=== PATIENT | female | born 1960 | race Caucasian/White ===

== ENCOUNTER 2019-02-14 10:49 | Emergency (ER) | payer OTHER ==
[~2019-02-14] VITALS: Ht 162.6 cm; Wt 90.4 kg
--- NOTE | 2019-02-14 10:53 | NUR ---
Patient ambulated to bed 7. RN evaluating patient at bedside.
[2019-02-14 10:55] VITALS: BP 130/96
--- NOTE | 2019-02-14 10:55 | NUR ---
BIB SELF WITH C/O RT EYE PAIN 5/10 WITH SWELLING X 3 DAYS. DENIES INJURY VISION RT EYE 20/70 LT/BL EYE 20/30 . DENIES N/V/D; SKIN IS PINK/WARM/DRY; AAOX4 WITH EVEN AND STEADY GAIT; LUNGS CLEAR BL; HR EVEN AND REGULAR; PT DENIES ANY FEVER, CP, SOB, OR COUGH AT THIS TIME; PATIENT STATES PAIN OF 5/10 AT THIS TIME; VSS; PATIENT POSITIONED FOR COMFORT; HOB ELEVATED; BEDRAILS UP X2; BED DOWN. ER MD MADE AWARE OF PT STATUS.
--- NOTE | 2019-02-14 11:47 | NUR ---
DR. GIBBS AT BEDSIDE
[2019-02-14 12:02] LABS: BASOPHILS # (AUTO) 0.1 K/uL (0.00-0.22); BASOPHILS % (AUTO) 1.1 % (0.0-2.0); EOSINOPHILS # (AUTO) 0.1 K/uL (0-0.4); EOSINOPHILS % (AUTO) 1.8 % (0.0-4.0); HEMATOCRIT 43.3 % (36-48); HEMOGLOBIN 14.5 g/dL (12.0-16.0); LYMPHOCYTES # (AUTO) 1.8 K/uL (2.5-16.5); LYMPHOCYTES % (AUTO) 28.9 % (20.5-51.1); MEAN CORPUSCULAR HEMOGLOBIN 31 pg (27-31); MEAN CORPUSCULAR HGB CONC 34 g/dL (33-37); MONOCYTES # (AUTO) 0.5 K/uL (0.8-1.0); MONOCYTES % (AUTO) 8.2 % (1.7-9.3); NEUTROPHILS # (AUTO) 3.7 K/uL (1.8-7.7); PLATELET COUNT (AUTO) 240 K/uL (140-450); RED BLOOD CELL COUNT(AUTO) 4.66 MIL/uL (4.20-5.40); RED CELL DISTRIBUTION WIDTH 12.6 % (11.6-13.7); WHITE BLOOD COUNT (AUTO) 6.1 K/uL (4.8-10.8)
[2019-02-14 12:14] LABS: ANION GAP 12.5 (8-16); CARBON DIOXIDE 27.9 mmol/L (21-32); CREATININE 0.8 mg/dL (0.6-1.3); POTASSIUM 3.4 mmol/L (3.5-5.1)
--- NOTE | 2019-02-14 12:52 | NUR ---
PT RETURNED FROM CT AT THIS TIME VIA WHEELCHAIR
--- NOTE | 2019-02-14 14:02 | NUR ---
Patient discharged with v/s stable. Written and verbal after care instructions given and explained. Patient alert, oriented and verbalized understanding of instructions. Ambulatory with steady gait. All questions addressed prior to discharge. ID band removed. Patient advised to follow up with PMD. Rx of AMOXICILLIN AND CLINDAMYCIN given. Patient educated on indication of medication including possible reaction and side effects. Opportunity to ask questions provided and answered.
[2019-02-14 14:03] VITALS: BP 121/68
== END 2019-02-14 14:02 | disposition home or self-care (01) ==
LOC: MED 10:49
DX: L03.213 Periorbital cellulitis (principal); M79.7 Fibromyalgia; M81.0 Age-related osteoporosis without current pathological fracture; E03.9 Hypothyroidism, unspecified; Z98.890 Other specified postprocedural states
CPT/HCPCS: 36415; 70481; 80048; 83605; 85025; 87040; 99284; Q9967

== ENCOUNTER 2019-09-22 08:41 | Emergency (ER) | payer OTHER ==
[~2019-09-22] VITALS: Ht 162.6 cm; Wt 88.5 kg
[2019-09-22 08:55] VITALS: BP 131/78
--- NOTE | 2019-09-22 08:59 | NUR ---
PT TAKEN TO BED 9.
--- NOTE | 2019-09-22 09:00 | NUR ---
DR STEELE AT BEDSIDE
--- NOTE | 2019-09-22 09:16 | NUR ---
EKG BEING PERFORMED AT BEDSIDE
--- NOTE | 2019-09-22 09:16 | NUR ---
C/O R SIDED CHEST PAIN, RADIATING TO UPPER BACK, 08/21 X1 DAY. PT STATES HER SON GAVE HER A HUG YESTERDAY AND THINKS HE SQUEEZZED HER TOO HARD DUE TO HER OSTEOPOROSIS. DENIES N/V. PT NON-DIAPHORETIC. PT ALERT AND AWAKE. VS STABLE. AMBULATES WITH STEADY GAIT. BED IS DOWN, LOCKED, BED RAIL X 1, ERMD TO SEE PT. HX: FIBROMYALGIA, HYPOTHYROID, OSTEOPOROSIS
--- NOTE | 2019-09-22 09:16 | NUR ---
LAB AT BEDSIDE
--- NOTE | 2019-09-22 09:31 | NUR ---
PT BEING TAKEN TO XRAY VIA WHEELCHAIR
[2019-09-22 09:38] LABS: BASOPHILS # (AUTO) 0.1 K/uL (0.00-0.22); BASOPHILS % (AUTO) 1.3 % (0.0-2.0); EOSINOPHILS # (AUTO) 0.1 K/uL (0-0.4); EOSINOPHILS % (AUTO) 2.4 % (0.0-4.0); HEMATOCRIT 42.2 % (36-48); LYMPHOCYTES # (AUTO) 1.8 K/uL (2.5-16.5); LYMPHOCYTES % (AUTO) 33.7 % (20.5-51.1); MEAN CORPUSCULAR HEMOGLOBIN 32 pg (27-31); MEAN CORPUSCULAR HGB CONC 33 g/dL (33-37); MEAN CORPUSCULAR VOLUME 96.8 fL (80-94); MONOCYTES # (AUTO) 0.5 K/uL (0.8-1.0); MONOCYTES % (AUTO) 9.9 % (1.7-9.3); NEUTROPHILS # (AUTO) 2.8 K/uL (1.8-7.7); NEUTROPHILS % (AUTO) 52.7 % (42.2-75.2); PLATELET COUNT (AUTO) 238 K/uL (140-450); RED BLOOD CELL COUNT(AUTO) 4.36 MIL/uL (4.20-5.40); RED CELL DISTRIBUTION WIDTH 13.8 % (11.6-13.7); WHITE BLOOD COUNT (AUTO) 5.3 K/uL (4.8-10.8)
--- NOTE | 2019-09-22 09:42 | NUR ---
Patient returned from XRAY. RN re-evaluating patient at bedside.
[2019-09-22 09:48] LABS: ANION GAP 11.9 (8-16); CARBON DIOXIDE 28.4 mmol/L (21-32); CREATININE 0.8 mg/dL (0.6-1.3); POTASSIUM 5.3 mmol/L (3.5-5.1)
[2019-09-22 09:54] LABS: ALBUMIN 3.7 g/dL (3.4-5.0); TOTAL BILIRUBIN 0.5 mg/dL (0.0-1.0)
--- NOTE | 2019-09-22 10:00 | NUR ---
Marielle palmer in [facility] - 09/22/19 at [email or web address] STEELE AT BEDSIDE
--- NOTE | 2019-09-22 10:27 | NUR ---
vs stable at this time. chest pain 08/21, dr cooper aware. pt alert and awake. daughter bedside
[2019-09-22 10:42] VITALS: BP 133/85
--- NOTE | 2019-09-22 10:42 | NUR ---
Patient discharged with v/s stable. Written and verbal after care instructions given and explained REGARDING CHEST WALL PAIN. Patient alert, oriented and verbalized understanding of instructions. Ambulatory with steady gait. All questions addressed prior to discharge. ID band removed. Patient advised to follow up with PMD. Rx of NORCO AND ZOFRAN given. Patient educated on indication of medication including possible reaction and side effects. Opportunity to ask questions provided and answered. INSTRUCTED TO NOT DRIVE AFTER TAKING NORCO PAPERWORK GIVEN IN [place], DISCHARGE INSTRUCTIONS GIVEN IN [place], DAUGHTER TRANSLATED
== END 2019-09-22 10:42 | disposition home or self-care (01) ==
LOC: MED 08:41
DX: R07.89 Other chest pain (principal); E03.9 Hypothyroidism, unspecified
CPT/HCPCS: 36415; 71101; 80053; 84484; 85025; 93005; 99284

== ENCOUNTER 2019-09-30 13:10 | Emergency (ER) | payer OTHER ==
[~2019-09-30] VITALS: Ht 162.6 cm; Wt 88.0 kg
[2019-09-30 13:13] VITALS: BP 136/82
--- NOTE | 2019-09-30 13:44 | NUR ---
PT AMBULATED TO BED 11
--- NOTE | 2019-09-30 14:17 | NUR ---
59 y/o f with complaints of right sided rib pain that started 1 1/2 weeks ago after getting "a huge hug" from her son. Patient stated she did get an x-ray a week ago that was negative. However, patient still has pain with movement, lifting and ADL's when using her right arm. She has taken Tylenol for pain that has not helped with the pain.
[2019-09-30] MEDS: IBUPROFEN 400 MG TAB PO ONE (15:02)
[2019-09-30 15:26] VITALS: BP 142/92
== END 2019-09-30 15:27 | disposition home or self-care (01) ==
LOC: MED 13:10
DX: S20.20XA Contusion of thorax, unspecified, initial encounter (principal); M54.9 Dorsalgia, unspecified; E07.9 Disorder of thyroid, unspecified; Z90.49 Acquired absence of other specified parts of digestive tract; Z90.710 Acquired absence of both cervix and uterus; X58.XXXA Exposure to other specified factors, initial encounter; Y93.89 Activity, other specified; Y92.89 Other specified places as the place of occurrence of the external cause; Y99.8 Other external cause status
CPT/HCPCS: 99282

== ENCOUNTER 2020-09-19 13:46 | Emergency (ER) | payer OTHER ==
[~2020-09-19] VITALS: Ht 162.6 cm; Wt 83.9 kg
[2020-09-19 13:51] VITALS: BP 131/86
--- NOTE | 2020-09-19 14:00 | NUR ---
PATIENT PRESENTS TO ED WITH LLB PAIN X 4 DAYS . PT STATES SHE HAS BEEN ABLE TO HOLD HER BLADDER AND HAS URGENCY . DENIES N/V/D; SKIN IS PINK/WARM/DRY; AAOX4 WITH EVEN AND STEADY GAIT; LUNGS CLEAR BL; HR EVEN AND REGULAR; PT DENIES ANY FEVER, CP, SOB, OR COUGH AT THIS TIME; PATIENT STATES PAIN OF 0/10 AT THIS TIME; VSS; PATIENT POSITIONED FOR COMFORT; HOB ELEVATED; BEDRAILS UP X2; BED DOWN. ER MD MADE AWARE OF PT STATUS.
--- NOTE | 2020-09-19 14:00 | NUR ---
AMBULATED TO BR FOR UA
[2020-09-19] MEDS ORDERED: KETOROLAC 15 MG/ML VIAL IVP ONE (14:20)
[2020-09-19] MEDS ORDERED: DEXAMETHASONE 10 MG/ML VIAL PO ONE (14:20)
[2020-09-19] MEDS ORDERED: diazePAM 5 MG TAB PO ONE (14:20)
[2020-09-19 14:52] VITALS: BP 131/86
--- NOTE | 2020-09-19 14:53 | NUR ---
Patient discharged with v/s stable. Written and verbal after care instructions given and explained. Patient alert, oriented and verbalized understanding of instructions. Ambulatory with steady gait. All questions addressed prior to discharge. ID band removed. Patient advised to follow up with PMD. Rx of MEDROL DOSE MUKESH & ROBAXIN given. Patient educated on indication of medication including possible reaction and side effects. Opportunity to ask questions provided and answered.
== END 2020-09-19 14:53 | disposition home or self-care (01) ==
LOC: MED 13:46
DX: M54.5 Low back pain (principal); E11.9 Type 2 diabetes mellitus without complications; I10 Essential (primary) hypertension
CPT/HCPCS: 81002; 96372; 99283; J1100; J1885

== ENCOUNTER 2022-08-11 16:51 | Emergency (ER) | payer OTHER ==
[~2022-08-11] VITALS: Ht 162.6 cm; Wt 70.3 kg
[2022-08-11 17:01] VITALS: BP 132/70
[2022-08-11] MEDS ORDERED: METOCLOPRAMIDE 10 MG TAB PO ONE (18:15)
[2022-08-11] MEDS ORDERED: DICYCLOMINE 10 MG CAP PO ONE (18:20)
[2022-08-11] MEDS ORDERED: ALUMINUM HYD/MAG/SIMETHICONE 30 ML UDC PO ONE (18:20)
[2022-08-11 18:30] LABS: BASOPHILS # (AUTO) 0.1 K/uL (0.00-0.22); BASOPHILS % (AUTO) 0.6 % (0.0-2.0); EOSINOPHILS # (AUTO) 0.1 K/uL (0-0.4); EOSINOPHILS % (AUTO) 0.9 % (0.0-4.0); HEMATOCRIT 43.7 % (36-48); HEMOGLOBIN 14.6 g/dL (12.0-16.0); LYMPHOCYTES # (AUTO) 2.1 K/uL (2.5-16.5); LYMPHOCYTES % (AUTO) 23.9 % (20.5-51.1); MEAN CORPUSCULAR HEMOGLOBIN 31 pg (27-31); MEAN CORPUSCULAR HGB CONC 34 g/dL (33-37); MONOCYTES # (AUTO) 0.7 K/uL (0.8-1.0); MONOCYTES % (AUTO) 7.9 % (1.7-9.3); NEUTROPHILS # (AUTO) 5.9 K/uL (1.8-7.7); NEUTROPHILS % (AUTO) 66.7 % (42.2-75.2); PLATELET COUNT (AUTO) 267 K/uL (140-450); RED BLOOD CELL COUNT(AUTO) 4.75 MIL/uL (4.20-5.40); RED CELL DISTRIBUTION WIDTH 13.9 % (11.6-13.7); WHITE BLOOD COUNT (AUTO) 8.9 K/uL (4.8-10.8)
--- NOTE | 2022-08-11 18:34 | NUR ---
pt taken to xray via wheelchair
[2022-08-11 18:50] LABS: ALBUMIN 3.7 g/dL (3.4-5.0); CARBON DIOXIDE 29.2 mmol/L (21-32); CREATININE 1.1 mg/dL (0.6-1.3); TOTAL BILIRUBIN 0.3 mg/dL (0.0-1.0)
[2022-08-11 19:02] LABS: POTASSIUM 4.8 mmol/L (3.5-5.1)
[2022-08-11 19:03] LABS: ANION GAP 12.6 (8-16)
[2022-08-11] MEDS ORDERED: ALUM355S5 PO (19:42)
[2022-08-11] MEDS ORDERED: ONDA-188 SL (19:43)
--- NOTE | 2022-08-11 19:49 | NUR ---
Patient left without D/C papers.
== END 2022-08-11 19:49 | disposition home or self-care (01) ==
LOC: MED 16:51
DX: R10.84 Generalized abdominal pain (principal); E03.9 Hypothyroidism, unspecified; M19.90 Unspecified osteoarthritis, unspecified site; M79.7 Fibromyalgia; Z98.890 Other specified postprocedural states
CPT/HCPCS: 36415; 71045; 80053; 83690; 84484; 85025; 93005; 99285; J8597

== ENCOUNTER 2022-09-30 12:31 | Emergency (ER) | payer OTHER ==
[~2022-09-30] VITALS: Ht 162.6 cm; Wt 89.4 kg
[~2022-09-30 12:31] MED LIST: ALUM355S5 PO; ONDA-188 SL
[2022-09-30 12:38] VITALS: BP 128/92
[2022-09-30 14:53] LABS: BASOPHILS % (AUTO) 0.7 % (0.0-2.0); EOSINOPHILS # (AUTO) 0.1 K/uL (0-0.4); EOSINOPHILS % (AUTO) 1.4 % (0.0-4.0); HEMATOCRIT 41.1 % (36-48); HEMOGLOBIN 14.1 g/dL (12.0-16.0); LYMPHOCYTES # (AUTO) 2.4 K/uL (2.5-16.5); LYMPHOCYTES % (AUTO) 37.2 % (20.5-51.1); MEAN CORPUSCULAR HEMOGLOBIN 32 pg (27-31); MEAN CORPUSCULAR HGB CONC 34 g/dL (33-37); MONOCYTES # (AUTO) 0.6 K/uL (0.8-1.0); MONOCYTES % (AUTO) 8.7 % (1.7-9.3); NEUTROPHILS # (AUTO) 3.4 K/uL (1.8-7.7); PLATELET COUNT (AUTO) 231 K/uL (140-450); RED BLOOD CELL COUNT(AUTO) 4.42 MIL/uL (4.20-5.40); RED CELL DISTRIBUTION WIDTH 13.9 % (11.6-13.7); WHITE BLOOD COUNT (AUTO) 6.5 K/uL (4.8-10.8)
[2022-09-30 15:44] LABS: ALBUMIN 3.5 g/dL (3.4-5.0); ASPARTATE AMINOTRANSFERASE 19 U/L (15-37); CARBON DIOXIDE 30.2 mmol/L (21-32); CREATININE 0.8 mg/dL (0.6-1.3); GFR ARICAN-AMERICAN 93 mL/min (>90); GLUCOSE 87 mg/dL (74-106); TOTAL BILIRUBIN 0.3 mg/dL (0.0-1.0); UREA NITROGEN, BLOOD 17 mg/dL (7-18)
[2022-09-30 16:28] LABS: ANION GAP 7.6 (8-16); CHLORIDE 103 mmol/L (98-107); POTASSIUM 4.8 mmol/L (3.5-5.1); SODIUM SERUM 136 mmol/L (136-145)
[2022-09-30] MEDS ORDERED: ACETAMINOPHEN EXTRA STRENGTH 500 MG TAB PO ONE (16:50)
[2022-09-30] MEDS ORDERED: CYCLOBENZAPRINE 10 MG TAB PO ONE (16:50)
[2022-09-30] MEDS ORDERED: KETOROLAC 60 MG/2 ML VIAL IM ONE (16:50)
[2022-09-30] MEDS ORDERED: IBUP-2213 PO (17:01)
--- NOTE | 2022-09-30 17:04 | NUR ---
MEDICATED FOR PAIN RIGHT NECK AND SHOULDER PAIN ORDERED BY MD, PT A/O TIMES 4, NAD,
[2022-09-30] MEDS ORDERED: CYCL-711 PO (17:10)
[2022-09-30] MEDS ORDERED: LID5T TP (17:10)
[2022-09-30 17:20] VITALS: BP 137/83
--- NOTE | 2022-09-30 17:21 | NUR ---
Patient discharged with v/s stable. Written and verbal after care instructions given and explained. Patient verbalized understanding. Ambulatory with steady gait. All questions addressed prior to discharge. Advised to follow up with PMD. RIGHT NECK AND SHOULDER PAIN PRIOR DC, 01/19
== END 2022-09-30 17:21 | disposition home or self-care (01) ==
LOC: MED 12:31
DX: S49.91XA Unspecified injury of right shoulder and upper arm, initial encounter (principal); X58.XXXA Exposure to other specified factors, initial encounter; Y93.89 Activity, other specified; Y92.89 Other specified places as the place of occurrence of the external cause; Y99.8 Other external cause status
CPT/HCPCS: 36415; 71045; 80053; 84484; 85025; 93005; 96372; 99285; J1885

== ENCOUNTER 2024-04-30 20:40 | Emergency (ER) | payer OTHER ==
[~2024-04-30] VITALS: Ht 162.6 cm; Wt 94.4 kg
[~2024-04-30 20:40] MED LIST changes: -ALUM355S5 PO; +CYCL-711 PO; +IBUP-2213 PO; +LID5T TP; +MAG-43 PO
[2024-04-30 20:50] VITALS: BP 139/75; PULSE 78; RESP 16; TEMP 98.5; O2SAT 100
[2024-04-30 21:28] LABS: BASOPHILS # (AUTO) 0.1 K/uL (0.00-0.22); BASOPHILS % (AUTO) 1.3 % (0.0-2.0); EOSINOPHILS # (AUTO) 0.1 K/uL (0-0.4); EOSINOPHILS % (AUTO) 0.9 % (0.0-4.0); HEMATOCRIT 40.1 % (36-48); HEMOGLOBIN 13.4 g/dL (12.0-16.0); LYMPHOCYTES # (AUTO) 1.9 K/uL (2.5-16.5); LYMPHOCYTES % (AUTO) 30.9 % (20.5-51.1); MEAN CORPUSCULAR HEMOGLOBIN 30 pg (27-31); MEAN CORPUSCULAR HGB CONC 34 g/dL (33-37); MEAN CORPUSCULAR VOLUME 90.3 fL (80-94); MONOCYTES # (AUTO) 0.6 K/uL (0.8-1.0); MONOCYTES % (AUTO) 9.6 % (1.7-9.3); NEUTROPHILS # (AUTO) 3.6 K/uL (1.8-7.7); NEUTROPHILS % (AUTO) 57.3 % (42.2-75.2); PLATELET COUNT (AUTO) 225 K/uL (140-450); RED BLOOD CELL COUNT(AUTO) 4.45 MIL/uL (4.20-5.40); RED CELL DISTRIBUTION WIDTH 13.7 % (11.6-13.7); WHITE BLOOD COUNT (AUTO) 6.2 K/uL (4.8-10.8)
[2024-04-30 21:38] LABS: ANION GAP 12.5 (8-16); CALCIUM 8.8 mg/dL (8.5-10.1); CARBON DIOXIDE 28.7 mmol/L (21-32); CREATININE 0.8 mg/dL (0.6-1.3); POTASSIUM 4.2 mmol/L (3.5-5.1)
[2024-04-30] MEDS: IBUPROFEN 600 MG TAB PO ONE (22:31)
[2024-04-30 22:38] VITALS: BP 139/75; PULSE 78; RESP 16; TEMP 98.5; O2SAT 100
== END 2024-04-30 22:34 | disposition home or self-care (01) ==
LOC: MED 20:40
DX: R51.9 Headache, unspecified (principal); R03.0 Elevated blood-pressure reading, without diagnosis of hypertension; R06.02 Shortness of breath; E03.9 Hypothyroidism, unspecified; E78.5 Hyperlipidemia, unspecified; Z79.899 Other long term (current) drug therapy; Z79.1 Long term (current) use of non-steroidal anti-inflammatories (NSAID)
CPT/HCPCS: 36415; 71045; 80048; 83880; 84484; 85025; 93005; 99285